=== PATIENT | male | born 1960 | race African-American/Black ===

== ENCOUNTER → 2020-09-30 | Outpatient (CLI) | payer OTHER ==
[~2020-09-30] MED LIST: AMBIEN CR 12.12.5 MG PO; GLUCOPHAGE1000 MG PO; OZEMPIC0.25 MG/0. SQ
== END ==
LOC: COL.RAD 12:55
DX: I66.9 Occlusion and stenosis of unspecified cerebral artery (principal); K14.6 Glossodynia

== ENCOUNTER 2021-03-01 16:11 | Observation (INO) | payer OTHER ==
[~2021-03-01] VITALS: Ht 182.9 cm; Wt 118.8 kg
[2021-03-01 16:40] LABS: BASO % 0.4 % (0.0-2.0); EOS # 0.1 K/mm3 (0.0-0.7); EOS % 0.7 % (0-4.0); GRAN # 5.3 K/mm3 (1.4-6.5); GRAN % 65.5 % (42.2-75.2); HEMOGLOBIN 11.9 g/dl (13.5-18.0); LYMPH # 2.2 K/mm3 (1.2-3.4); LYMPH % 27.5 % (20.0-51.0); MEAN CELL VOLUME 84 fl (80.0-100.0); MEAN CORPUSCULAR HEMOGLOBIN 28 pg (27.0-31.0); MEAN CORPUSCULAR HGB CONC 34 g/dl (33.0-37.0); MEAN PLATELET VOLUME 12.4 fl (7.4-10.4); MONO # 0.5 K/mm3 (0.1-0.6); MONO % 5.8 % (1.7-9.3); PLATELET COUNT 155 K/mm3 (130-400); RED BLOOD COUNT 4.22 M/mm3 (4.20-5.60); REDCELL DISTRIBUTION WIDTH-CV 13.5 % (11.5-14.5)
[2021-03-01 16:42] LABS: HEMATOCRIT 35.3 % (42.0-52.0)
[2021-03-01 16:59] LABS: BILIRUBIN,TOTAL 0.4 mg/dL (0.2-1.2); C-REACTIVE PROTEIN 0.24 mg/dL (0.00-0.50); CALCIUM 9.1 mg/dL (8.4-10.2); CREATININE, serum 1.52 mg/dL (0.72-1.25); POTASSIUM 3.8 mmol/L (3.5-4.5); TOTAL PROTEIN 7.3 gm/dL (6.2-8.1)
[2021-03-01 17:05] LABS: TROPONIN-I 0.014 ng/mL (0.00-0.033)
[2021-03-01 18:27] LABS: COLLECTION METHOD CLEAN CATCH
[2021-03-01 18:38] LABS: MUCOUS Present /lpf; PH 5 (5-8); SQUAMOUS EPITHELIAL None Seen /hpf; URINE APPEARANCE Clear; URINE BACTERIA None Seen /hpf; URINE BILIRUBIN Negative (NEGATIVE); URINE BLOOD Negative (NEGATIVE); URINE COLOR Yellow; URINE GLUCOSE 1+ (NEGATIVE); URINE KETONE Negative (NEGATIVE); URINE LEUKOCYTE ESTERASE Negative (NEGATIVE); URINE NITRATE Negative (NEGATIVE); URINE PROTEIN(semi-quant) 1+ (NEGATIVE); URINE RBC 0-2 /hpf
[2021-03-01] MEDS ORDERED: GLUCOPHAGE1000 MG PO (20:20)
[2021-03-01 20:37] VITALS: BP 133/66; PULSE 83; TEMP 98.3
--- NOTE | 2021-03-01 21:12 | NUR ---
ALERT AND OX4. ER AMDIT PER CART/ HX AND ASSESSMENT OBTAINED. PT STATES HE JUST BLACKED OUT TODAY AND ITS NOT THE FIRST TIME ITS HAPPEN. UNKNOWN WHY IT HAPPENED LAST TIME WELL. PT IS DIABETIC,TAKES METFORMIN. LUNCH BOX PROVIDED. POC DISCUSSED. PUT ON 2 LITER PT CPAP AT HOME. CALL LIGHT WI REACH.
[2021-03-01 23:20] VITALS: BP 116/55; PULSE 85; TEMP 98.7
[2021-03-02] VITALS (7 sets, daily range): BP systolic 101–139; BP diastolic 46–83; PULSE 76–86; TEMP 98–98.7
--- NOTE | 2021-03-02 05:47 | NUR ---
RESTED THROUGH THE NIGHT WITHOUT INCIDENT. IV FLUIDS INFUSING. WILL HAVE ECO DONE THIS AM PER ORDER. NEURO INTACT. NEEDS MET.
[2021-03-02 06:46] LABS: BASO % 0.3 % (0.0-2.0); EOS # 0.1 K/mm3 (0.0-0.7); EOS % 1.3 % (0-4.0); GRAN # 3.6 K/mm3 (1.4-6.5); GRAN % 53.8 % (42.2-75.2); LYMPH # 2.6 K/mm3 (1.2-3.4); LYMPH % 38.5 % (20.0-51.0); MEAN CELL VOLUME 86 fl (80.0-100.0); MEAN CORPUSCULAR HEMOGLOBIN 28 pg (27.0-31.0); MEAN CORPUSCULAR HGB CONC 33 g/dl (33.0-37.0); MEAN PLATELET VOLUME 12.9 fl (7.4-10.4); MONO # 0.4 K/mm3 (0.1-0.6); MONO % 5.8 % (1.7-9.3); PLATELET COUNT 142 K/mm3 (130-400); RED BLOOD COUNT 3.87 M/mm3 (4.20-5.60); REDCELL DISTRIBUTION WIDTH-CV 13.7 % (11.5-14.5)
[2021-03-02 06:58] LABS: HEMATOCRIT 33.2 % (42.0-52.0)
[2021-03-02 07:03] LABS: CREATININE, serum 1.18 mg/dL (0.72-1.25); POTASSIUM 3.9 mmol/L (3.5-4.5)
--- NOTE | 2021-03-02 07:11 | NUR ---
Patient is awake and resting in bed. Patient denies pain at this time. Call light and bedside table are within reach. Will continue to monitor patient throughout shift.
--- NOTE | 2021-03-02 14:04 | NUR ---
Sw met with the pt who stated his preference to return home once medically stable. The pt lives at home with his , Stacie [phone]. The pt is independent on all ADLs and still drives. The pt does use a glucometer, blood pressure meter.The pt PCP is [facility] and gets his medications from [facility] or [facility]. The pt has never used HH services before. Pt is not interested in [facility] at this time. No other needs stated at this time. [place] to await further recommendations and follow up as needed. D/c: Home
[2021-03-02] MEDS ORDERED: OZEMPIC0.25 MG/0. SQ (18:56)
[2021-03-02] MEDS ORDERED: AMBIEN CR 12.12.5 MG PO (18:56)
--- NOTE | 2021-03-02 22:34 | NUR ---
ALERT AND OX4. DENIES SOA, CHEST PAIN OR DIZZY. AMBULATING IN ROOM. AT BEDSIDE. NEURO INTACT. AWAITING ECO TO BE DONE IN AM. FLUIDS OF NS INFUSED, INT. PM MEDS GIVEN. CALL LIGHT WI REACH. NEEDS MET.
[2021-03-03 00:07] VITALS: BP 117/72; PULSE 79; TEMP 98.2
[2021-03-03 03:52] VITALS: BP 124/74; PULSE 78; TEMP 97.5
[2021-03-03 07:30] VITALS: BP 118/64; PULSE 83; TEMP 98.6
--- NOTE | 2021-03-03 09:39 | NUR ---
PT IS ALERT AND ORIENTED X4. DENIES DIZZINESS AND PAIN. NEURO IS INTACT AND PT IS AMBULATING BY HIMSELF. MORNING ASSESSMENT COMPLETE AND MEDICATIONS GIVEN. PT DOES NOT NEED ANYTHING ELSE AT THIS TIME. CALL LIGHT WITHIN REACH.
--- NOTE | 2021-03-03 10:42 | NUR ---
Initial visit: Patient thanked Collateral Clerk for looking in on him and offering God's blessings. Patient declined spiritual care.
[2021-03-03 11:36] VITALS: BP 123/73; PULSE 80; TEMP 98.6
--- NOTE | 2021-03-03 14:54 | NUR ---
PATIENT DISCHARGING HOME VIA AMBULATORY. GAVE DISCHARGE INSTRUCTIONS & DISCUSSED F/U APT. ANSWERED QUESTIONS/CONCERNS. WILLIAM SCOTT DC'D RIGHT HAND IV, COVERED SITE WITH GAUZE & COBAN. PATIENT IS DRESSED, PACKED AND DISCHARGED.
== END 2021-03-03 14:55 | disposition home or self-care (01) ==
LOC: COL.ER 16:11 → SURG 18:24
PROVIDERS: Nurse Practitioner; Student in an Organized Health Care Education/Training Program; ADMIT Internal Medicine
DX: R55 Syncope and collapse (principal); R53.1 Weakness; R51.9 Headache, unspecified; N17.9 Acute kidney failure, unspecified; K59.00 Constipation, unspecified; K14.6 Glossodynia; E11.22 Type 2 diabetes mellitus with diabetic chronic kidney disease; G47.33 Obstructive sleep apnea (adult) (pediatric); I95.9 Hypotension, unspecified; I62.9 Nontraumatic intracranial hemorrhage, unspecified; I12.9 Hypertensive chronic kidney disease with stage 1 through stage 4 chronic kidney disease, or unspecified chronic kidney disease; N18.9 Chronic kidney disease, unspecified; F43.10 Post-traumatic stress disorder, unspecified; Z99.89 Dependence on other enabling machines and devices
CPT/HCPCS: G0378; J7030